=== PATIENT | male | born 1945 | race Caucasian/White ===

== ENCOUNTER 2016-09-06 17:26 | Emergency (ER) | payer MEDICARE ==
[~2016-09-06 17:26] MED LIST: ALDACTONE 25MG25 MG PO; AMARYL 2MG TABLE2 MG PO; ASPIRIN CHEWABL81 MG PO; CARDIZEM30 MG PO; CHLORTHALIDONE25 MG PO; CLINDAMYCIN HC300 MG PO; COUMADIN3 MG PO; COZAAR100 MG PO; LIPITOR TAB 2020 MG PO; LOPRESSOR100 MG PO; MULTIVITAMINS1 EAC1 PO; NORVASC 5 MG TAB5 MG PO; ZOCOR 10 MG TAB10 MG PO
[2016-09-06 20:43] LABS: HEMOGLOBIN 12.6 gm/dl (14.0-17.5); RED BLOOD COUNT 4.02 M/UL (4.20-5.50); WHITE BLOOD COUNT 13.7 K/UL (4.5-11.0)
== END 2016-09-06 23:40 | disposition home or self-care (01) ==
LOC: ER1 17:26
PROVIDERS: Emergency Medicine
DX: R31.0 Gross hematuria (principal); I12.9 Hypertensive chronic kidney disease with stage 1 through stage 4 chronic kidney disease, or unspecified chronic kidney disease; E11.22 Type 2 diabetes mellitus with diabetic chronic kidney disease; N18.9 Chronic kidney disease, unspecified; N28.1 Cyst of kidney, acquired; D72.829 Elevated white blood cell count, unspecified; D64.9 Anemia, unspecified; I48.91 Unspecified atrial fibrillation; T45.515A Adverse effect of anticoagulants, initial encounter
CPT/HCPCS: 36415; 80053; 81001; 85025; 85610; 87086; 99284

== ENCOUNTER → 2016-09-29 | Outpatient (CLI) | payer MEDICARE | LOC: CT 13:09 | DX: R31.0 Gross hematuria (principal); N28.1 Cyst of kidney, acquired ==

== ENCOUNTER 2020-05-06 03:14 | Inpatient (IN) | payer MEDICARE ==
[~2020-05-06] VITALS: Ht 172.7 cm; Wt 95.4 kg
[~2020-05-06 03:14] MED LIST changes: +ASPIRIN81 MG PO; +ATORVASTATIN CA80 MG PO; +BUMETANIDE2 MG PO; +CATAPRES0.2 MG PO; +CLONIDINE1 EACH TOP; +CORDARONE 200M200 MG PO; +COREG 25MG TAB25 MG PO; +COZAAR50 MG PO; +DIABETA 2.5 MG2.5 MG PO; +DIURIL PO; +DOCUSATE SODIU1 EACH PO; +ELIQUIS2.5 MG PO; +FERROUS SULFAT325 MG PO; +IPRAT-ALBUT 0.5-3 ML NEB; +KEFLEX CAP 500500 MG PO; +MELATONIN3 MG PO; +MIRALAX17 GM PO; +MULTI-VITAMIN1 EACH PO; +MYCOSTATIN POWD15 GM TOP; +NEPRO CARB ST1000 ML PO; +NORVASC10 MG PO; +NOVOLOG100 UNIT/1 SQ; +PANTOPRAZOLE SO40 MG PO; +PLAVIX 75 MG TA75 MG PO; +POTASSIUM CHLO20 ME2 PO; +PROTONIX40 MG PO; +SODIUM BICARBO650 MG GT; +STROVITE FORTE1 EACH PO; +SYNTHROID25 MCG PO; +TYLENOL 325MG325 MG PO; +VENTOLIN HFA 66.7 GM INH; +ZINC OXIDE OINT30 GM TP; +[UNRECOGNIZED DRUG - OTHER] TP
[2020-05-06 04:40] LABS: HEMOGLOBIN 9.6 gm/dl (14.0-17.5); RED BLOOD COUNT 3.07 M/UL (4.20-5.50); WHITE BLOOD COUNT 15.3 K/UL (4.5-11.0)
[2020-05-06] MEDS ORDERED: FLOMAX 0.4 MG0.4 MG PO (16:05)
[2020-05-06] MEDS ORDERED: COREG3.125 MG PO (16:05)
[2020-05-06] MEDS ORDERED: AMARYL1 MG PO (16:05)
[2020-05-06] MEDS ORDERED: ALDACTONE25 MG PO (16:06)
[2020-05-06] MEDS ORDERED: FINASTERIDE5 MG PO (16:25)
[2020-05-06] MEDS ORDERED: CALCIUM 600 +1 EA10 PO (16:27)
[2020-05-06] MEDS ORDERED: BUMETANIDE2 MG PO (16:28)
[2020-05-06] MEDS ORDERED: UNICOMPLEX-M1 EACH PO (16:28)
[2020-05-06] MEDS ORDERED: CATAPRES 0.1MG0.1 MG PO (16:32)
[2020-05-07 02:31] LABS: HEMOGLOBIN 9.9 gm/dl (14.0-17.5); RED BLOOD COUNT 3.12 M/UL (4.20-5.50); WHITE BLOOD COUNT 15.9 K/UL (4.5-11.0)
[2020-05-08 02:58] LABS: HEMOGLOBIN 9.9 gm/dl (14.0-17.5); RED BLOOD COUNT 3.18 M/UL (4.20-5.50); WHITE BLOOD COUNT 15.3 K/UL (4.5-11.0)
[2020-05-10 02:58] LABS: RED BLOOD COUNT 2.96 M/UL (4.20-5.50); WHITE BLOOD COUNT 11.5 K/UL (4.5-11.0)
[2020-05-11 03:04] LABS: HEMOGLOBIN 8.9 gm/dl (14.0-17.5); RED BLOOD COUNT 2.92 M/UL (4.20-5.50); WHITE BLOOD COUNT 9.9 K/UL (4.5-11.0)
[2020-05-12 10:58] LABS: URINE CREATININE 67.1 mg/dL
[2020-05-13 04:07] LABS: RED BLOOD COUNT 2.89 M/UL (4.20-5.50); WHITE BLOOD COUNT 8.3 K/UL (4.5-11.0)
--- NOTE | 2020-05-14 03:02 | NUR ---
PATIENT CONFUSED STATES HE NEEDS TO GO TO THE STORE. HAD REMOVED AIRVO AND WAS 75% ON AIRVO. REPLACED AND CAME UP TO 92%
--- NOTE | 2020-05-14 03:14 | NUR ---
VISITS ON THE FLOOR, MADE AWARE OF PATIENTS CONFUSION AND REMOVING AIRVO, EXAMS PATIENT AND ORDERS ABG TO LET HIM KNOW RESULTS.
[2020-05-14 07:12] LABS: COMPLEMENT C3, SERUM 121 mg/dL (82-167); COMPLEMENT C4, SERUM 38 mg/dL (12-38); HBSAG SCREEN Negative (Negative); HEP B CORE AB, TOT Negative (Negative); HEP C VIRUS AB <0.1 (0.0-0.9)
[2020-05-14 10:29] LABS: HEMOGLOBIN 8.9 gm/dl (14.0-17.5); RED BLOOD COUNT 2.9 M/UL (4.20-5.50)
[2020-05-14 13:14] LABS: ANTI-DSDNA ANTIBODIES <1 IU/mL (0-9)
[2020-05-14 16:14] LABS: A/G RATIO 0.7 (0.7-1.7); ALPHA-1-GLOBULIN 0.3 g/dL (0.0-0.4); ALPHA-2-GLOBULIN 1.1 g/dL (0.4-1.0); ATYPICAL PANCA <1:20 titer (Neg:<1:20); BETA GLOBULIN 0.9 g/dL (0.7-1.3); CYTOPLASMIC (C-ANCA) <1:20 titer (Neg:<1:20); GAMMA GLOBULIN 0.7 g/dL (0.4-1.8); IMMUNOGLOBULIN A, QN, SERUM 400 mg/dL (61-437); IMMUNOGLOBULIN G, QN, SERUM 839 mg/dL (603-1613); IMMUNOGLOBULIN M, QN, SERUM 57 mg/dL (15-143); M-SPIKE Not Observed g/dL (Not Observed); PERINUCLEAR (P-ANCA) <1:20 titer (Neg:<1:20)
[2020-05-16 03:13] LABS: HEMOGLOBIN 9.8 gm/dl (14.0-17.5); RED BLOOD COUNT 3.17 M/UL (4.20-5.50); WHITE BLOOD COUNT 10.4 K/UL (4.5-11.0)
[2020-05-17 02:58] LABS: HEMOGLOBIN 8.9 gm/dl (14.0-17.5); RED BLOOD COUNT 2.88 M/UL (4.20-5.50); WHITE BLOOD COUNT 8.6 K/UL (4.5-11.0)
[2020-05-18 02:18] LABS: HEMOGLOBIN 8.7 gm/dl (14.0-17.5); RED BLOOD COUNT 2.87 M/UL (4.20-5.50); WHITE BLOOD COUNT 9.9 K/UL (4.5-11.0)
[2020-05-20 02:26] LABS: HEMOGLOBIN 8.6 gm/dl (14.0-17.5); RED BLOOD COUNT 2.82 M/UL (4.20-5.50)
[2020-05-20 02:27] LABS: WHITE BLOOD COUNT 12.9 K/UL (4.5-11.0)
[2020-05-21 03:48] LABS: HEMOGLOBIN 8.2 gm/dl (14.0-17.5); RED BLOOD COUNT 2.64 M/UL (4.20-5.50); WHITE BLOOD COUNT 14.3 K/UL (4.5-11.0)
--- NOTE | 2020-05-21 13:59 | NUR ---
NO CHANGE FROM PREVIOUS ASSESSMENT, PT RESTING IN BED WITH EYES CLOSED.
--- NOTE | 2020-05-21 17:45 | NUR ---
15:40 PT TAKEN TO DIALYSIS ON 2ND FLOOR, VSS AT THIS TIME
--- NOTE | 2020-05-22 14:33 | NUR ---
14:00 NO CHANGES FROM PREVIOUS ASSESSMENT, PT RESTING IN BED, VSS AT THIS TIME
[2020-05-23 03:55] LABS: RED BLOOD COUNT 2.6 M/UL (4.20-5.50)
[2020-05-24 02:44] LABS: HEMOGLOBIN 7.5 gm/dl (14.0-17.5); RED BLOOD COUNT 2.41 M/UL (4.20-5.50); WHITE BLOOD COUNT 19.6 K/UL (4.5-11.0)
[2020-05-24 14:14] LABS: ANTI-DSDNA ANTIBODIES <1 IU/mL (0-9)
--- NOTE | 2020-05-25 00:35 | NUR ---
0035- AT THIS TIME IT WAS SEEN ON THE MONITOR THAT PATIENT'S HEART RATE WAS IN THE 30'S AND O2 SATURATION WAS 66%. NURSES, TESS AND SHANT, WENT INTO ROOM QUICKLY TO ASSESS PATIENT. PATIENT WAS FOUND TO BE SLUMPED OVER THE SIDE OF BED AND HAD TAKEN HIS OXYGEN OUT OF HIS NOSE. PATIENT WAS ALSO UNRESPONSIVE AT THIS TIME. CRASH CART WAS IMMENDIATELY BROUGHT INTO ROOM AND I HIS PRIMARY NURSE WAS NOTIFIED AT THIS TIME. PATIENT HAD LEGS OVER SIDE OF RAIL IN WHAT LOOKED LIKE AN ATTEMPT TO GET OUT OF BED. LEGS WAS PUT BACK IN BED AND PATIENT WAS RESITUATED. NASAL CANNULA WAS PUT BACK IN HIS NOSE. OXYGEN NOT IMPROVING WELL SO AIRVO TURNED ON AND PLACED IN HIS NOSE. PATIENT WAS DISPLAYING AGONAL BREATHING WITH A RESP. RATE IN LOW TEENS. PATIENT WAS ALSO NOT RESPONSIVE TO STERNAL RUB. 0038- ATTEMPT TO NOTIFY MD. NO ANSWER. 0040- 2ND ATTEMPT TO NOTIFY MD. MD WAS TOLD ABOUT PATIENT STATUS AND THAT HE IS CURRENTLY ON AIRVO AND VERY SLOWLY IMPROVING IN O2 SAT. MD INFORMED THAT PATIENT IS SHOWING AGONAL BREATHING AND AND NOT RESPONSIVE TO STIMULI. (GARRICK) ORDER TO PUT PATIENT ON BIPAP FOR NOW AND HE WILL BE ON HIS WAY. RT NOTIFIED. 0044- MD ARRIVAL TO FLOOR. MD ASSESSED PATIENT. AT THIS TIME. 02 AT 95-97% ON AIRVO. PATIENT STILL UNRESPONSIVE AND AGONAL BREATHING. MD ORDER ALSO RECIEVED FOR CXR, ABG NOW, ENSURE THAT PULM IS ON PATIENT'S CASE AND TO MOVE PATIENT TO ICU. HOUSE WAS NOTIFIED FOR THE NEED FOR AN ICU BED PER MD. 0055- REPORT CALLED TO YOLIS STRONG IN ICU. 0100- PATIENT TRASFERRED TO ICU BY ELLY SAMPSON AND YOLIS BRAN AFTER CXR WAS DONE IN PATIENT ROOM. MD NOTIFIED. ATTEMPTED TO NOTIFY FAMILY OF TRANSFER BUT BUSY TONE RECIEVED WHEN CALLED. 0108- MD ORDER FOR CT OF HEAD WITHOUT CONTRAST RECIEVED. ORDER ENTERED.
[2020-05-25 04:34] LABS: RED BLOOD COUNT 2.06 M/UL (4.20-5.50); WHITE BLOOD COUNT 25.7 K/UL (4.5-11.0)
[2020-05-25 04:35] LABS: HEMOGLOBIN 6.4 gm/dl (14.0-17.5)
[2020-05-25 18:09] LABS: ANTIMYELOPEROXIDASE (MPO) ABS <9.0 U/mL (0.0-9.0); ANTIPROTEINASE 3 (PR-3) ABS <3.5 U/mL (0.0-3.5); ATYPICAL PANCA <1:20 titer (Neg:<1:20); CYTOPLASMIC (C-ANCA) <1:20 titer (Neg:<1:20); PERINUCLEAR (P-ANCA) <1:20 titer (Neg:<1:20)
[2020-05-26 06:36] LABS: HEMOGLOBIN 7.3 gm/dl (14.0-17.5); RED BLOOD COUNT 2.38 M/UL (4.20-5.50); WHITE BLOOD COUNT 22.9 K/UL (4.5-11.0)
--- NOTE | 2020-05-26 14:08 | NUR ---
05/26/20 1345 ATTEMPT WAS MADE TO CONTACT FAMILY ABOUT PT CONDITON AND CODE STATUS. UNABLE TO REACH ANY FAMILY AT THIS TIME. THE ELECTRIC WAS STILL OUT AT THE SONS HOME YESTERDAY. HE HAD CALLED FROM ANOTHER PERSONS PHONE YESTERDAY. MADE AWARE. WANTED ME TO DISCUSS CODE STATUS WITH THE PT AND PT WAS VERY LETHARGIC AND UNABLE TO GIVE A RESPONSE.
[2020-05-26 21:35] LABS: WHITE BLOOD COUNT 22.6 K/UL (4.5-11.0)
[2020-05-26 21:36] LABS: HEMOGLOBIN 8.9 gm/dl (14.0-17.5); RED BLOOD COUNT 2.94 M/UL (4.20-5.50)
[2020-05-27 05:38] LABS: HEMOGLOBIN 7.9 gm/dl (14.0-17.5); WHITE BLOOD COUNT 21.3 K/UL (4.5-11.0)
[2020-05-27 05:40] LABS: RED BLOOD COUNT 2.62 M/UL (4.20-5.50)
[2020-05-27 16:11] LABS: ORGANISM ID Not indicated. (.); SPECIMEN SOURCE Urine (.); STREPTOCOCCUS PNEUMONIAE AG Negative (Negative)
[2020-05-27 16:33] LABS: RED BLOOD COUNT 2.94 M/UL (4.20-5.50); WHITE BLOOD COUNT 14.3 K/UL (4.5-11.0)
[2020-05-28 05:36] LABS: HEMOGLOBIN 7.5 gm/dl (14.0-17.5)
[2020-05-28 05:45] LABS: RED BLOOD COUNT 2.44 M/UL (4.20-5.50)
[2020-05-29 05:36] LABS: HEMOGLOBIN 9.3 gm/dl (14.0-17.5); RED BLOOD COUNT 3.1 M/UL (4.20-5.50); WHITE BLOOD COUNT 17.4 K/UL (4.5-11.0)
[2020-05-30 03:19] LABS: HEMOGLOBIN 9.7 gm/dl (14.0-17.5); RED BLOOD COUNT 3.22 M/UL (4.20-5.50)
[2020-05-30 03:20] LABS: WHITE BLOOD COUNT 22.3 K/UL (4.5-11.0)
[2020-05-31 05:40] LABS: RED BLOOD COUNT 2.96 M/UL (4.20-5.50); WHITE BLOOD COUNT 21.6 K/UL (4.5-11.0)
[2020-06-01 04:32] LABS: HEMOGLOBIN 8.2 gm/dl (14.0-17.5); RED BLOOD COUNT 2.71 M/UL (4.20-5.50); WHITE BLOOD COUNT 23.7 K/UL (4.5-11.0)
--- NOTE | 2020-06-01 13:57 | NUR ---
1000: DR BARFIELD NOTIFIED PT HR 140-150'S, RR 40-50'S, O2 SAT 89% ON BIPAP, AMS, PT JUST BEGAN DIALYSIS. NOTIFY PULMONOLOGY. 1003: DR ARORA NOTIFIED OF PT CONDITION, CAME TO BEDSIDE TO ASSESS PT. PT STARTED ON AMIODARONE DRIP PER PROTOCOL, TEAM READY TO INTUBATE PT, HOB LOWERED TO SUPINE POSITION, PT HR REGULATED TO 80'S, RR TO 20'S-30'S, O2 SAT 96%, MD HOLDING ON INTUBATION FOR NOW. FAMILY NOTIFIED.
[2020-06-01 15:25] LABS: HEMOGLOBIN 7.5 gm/dl (14.0-17.5); RED BLOOD COUNT 2.46 M/UL (4.20-5.50); WHITE BLOOD COUNT 23.4 K/UL (4.5-11.0)
[2020-06-01] MEDS ORDERED: LOPRESSOR 25 MG25 MG PO (18:09)
[2020-06-01 19:28] LABS: HEMOGLOBIN 9.7 gm/dl (14.0-17.5); RED BLOOD COUNT 3.23 M/UL (4.20-5.50); WHITE BLOOD COUNT 28.3 K/UL (4.5-11.0)
== END 2020-06-01 22:41 | disposition short-term general hospital (02) | DRG 673 ==
LOC: ER1 03:14 → CCU 05:46 → CDU 05:46 → PROG CARE 05:46 → 2 EAST 05-14 13:26 → PROG CARE 05-14 13:26 → 2 EAST 05-14 13:26 → CCU 05-25 01:23 → 2 EAST 05-25 02:00 → CCU 05-25 04:00
PROVIDERS: Family Medicine; Hospitalist; Internal Medicine; Internal Medicine Cardiovascular Disease; Internal Medicine Gastroenterology; Internal Medicine Infectious Disease; Internal Medicine Nephrology; Internal Medicine Pulmonary Disease; ADMIT Internal Medicine
PROC: B24BZZZ Ultrasonography of Heart with Aorta (ICD-10-PCS; 2020-05-06)
PROC: 5A0935A Assistance with Respiratory Ventilation, Less than 24 Consecutive Hours, High Flow/Velocity Cannula (ICD-10-PCS; 2020-05-06)
PROC: 0JH63XZ Insertion of Tunneled Vascular Access Device into Chest Subcutaneous Tissue and Fascia, Percutaneous Approach (ICD-10-PCS; 2020-05-14)
PROC: 05HM33Z Insertion of Infusion Device into Right Internal Jugular Vein, Percutaneous Approach (ICD-10-PCS; 2020-05-14)
PROC: B543ZZA Ultrasonography of Right Jugular Veins, Guidance (ICD-10-PCS; 2020-05-14)
PROC: 8E0ZXY6 Isolation (ICD-10-PCS; principal; 2020-05-23)
PROC: XW033E5 Introduction of Remdesivir Anti-infective into Peripheral Vein, Percutaneous Approach, New Technology Group 5 (ICD-10-PCS; 2020-05-23)
PROC: 30233N1 Transfusion of Nonautologous Red Blood Cells into Peripheral Vein, Percutaneous Approach (ICD-10-PCS; 2020-05-25)
PROC: 5A1945Z Respiratory Ventilation, 24-96 Consecutive Hours (ICD-10-PCS; 2020-05-26)
PROC: 0BH17EZ Insertion of Endotracheal Airway into Trachea, Via Natural or Artificial Opening (ICD-10-PCS; 2020-05-26)
PROC: 0W3P8ZZ Control Bleeding in Gastrointestinal Tract, Via Natural or Artificial Opening Endoscopic (ICD-10-PCS; 2020-05-26)
PROC: 30233N1 Transfusion of Nonautologous Red Blood Cells into Peripheral Vein, Percutaneous Approach (ICD-10-PCS; 2020-05-26)
PROC: 30233N1 Transfusion of Nonautologous Red Blood Cells into Peripheral Vein, Percutaneous Approach (ICD-10-PCS; 2020-05-27)
PROC: 0DJ08ZZ Inspection of Upper Intestinal Tract, Via Natural or Artificial Opening Endoscopic (ICD-10-PCS; 2020-05-28)
PROC: 0DH68UZ Insertion of Feeding Device into Stomach, Via Natural or Artificial Opening Endoscopic (ICD-10-PCS; 2020-05-28)
PROC: 3E0G76Z Introduction of Nutritional Substance into Upper GI, Via Natural or Artificial Opening (ICD-10-PCS; 2020-05-28)
PROC: 30233N1 Transfusion of Nonautologous Red Blood Cells into Peripheral Vein, Percutaneous Approach (ICD-10-PCS; 2020-05-28)
DX: N17.0 Acute kidney failure with tubular necrosis (principal); U07.1 COVID-19; J12.82 Pneumonia due to coronavirus disease 2019; I50.23 Acute on chronic systolic (congestive) heart failure; G93.41 Metabolic encephalopathy; J80 Acute respiratory distress syndrome; A41.89 Other specified sepsis; R65.21 Severe sepsis with septic shock; K25.4 Chronic or unspecified gastric ulcer with hemorrhage; K26.4 Chronic or unspecified duodenal ulcer with hemorrhage; K22.11 Ulcer of esophagus with bleeding; E43 Unspecified severe protein-calorie malnutrition; I13.0 Hypertensive heart and chronic kidney disease with heart failure and stage 1 through stage 4 chronic kidney disease, or unspecified chronic kidney disease; D62 Acute posthemorrhagic anemia; I48.20 Chronic atrial fibrillation, unspecified; B15.9 Hepatitis A without hepatic coma; N18.6 End stage renal disease; R53.81 Other malaise; E11.22 Type 2 diabetes mellitus with diabetic chronic kidney disease; T38.0X5A Adverse effect of glucocorticoids and synthetic analogues, initial encounter; E11.65 Type 2 diabetes mellitus with hyperglycemia; I25.5 Ischemic cardiomyopathy; E66.01 Morbid (severe) obesity due to excess calories; D72.829 Elevated white blood cell count, unspecified; I25.10 Atherosclerotic heart disease of native coronary artery without angina pectoris; J44.9 Chronic obstructive pulmonary disease, unspecified; E03.9 Hypothyroidism, unspecified; Z90.49 Acquired absence of other specified parts of digestive tract; Z99.2 Dependence on renal dialysis; Z68.35 Body mass index [BMI] 35.0-35.9, adult; Z87.891 Personal history of nicotine dependence; Z95.5 Presence of coronary angioplasty implant and graft; Z79.02 Long term (current) use of antithrombotics/antiplatelets; Z79.890 Hormone replacement therapy; Z79.899 Other long term (current) drug therapy; N40.0 Benign prostatic hyperplasia without lower urinary tract symptoms; R19.7 Diarrhea, unspecified
CPT/HCPCS: ECHO; 31500; 36415; 36430; 36600; 71045; 71250; 74018; 77001; 80048; 80053; 80069; 81001; 82270; 82550; 82553; 82570; 82575; 82728; 82784; 82803; 82962; 83520; 83540; 83550; 83605; 83615; 83735; 83880; 83883; 84100; 84155; 84156; 84165; 84300; 84484; 85007; 85014; 85018; 85025; 85027; 85610; 85730; 86021; 86038; 86140; 86160; 86162; 86225; 86256; 86334; 86704; 86706; 86708; 86803; 86850; 86900; 86901; 86920; 87040; 87070; 87086; 87205; 87278; 87340; 87449; 87899; 90935; 90937; 93005; 93306; 93970; 94002; 94003; 94640; 94660; 94664; 94760; 96365; 96366; 96367; 96372; 97110; 97110-GP-CQ; 97162; 97164; 97166; 97168; 97530; 97530-GP-CQ; 97535; 99285; A6212; C1750; C1752; C1769; C9113; J0171; J1100; J1160; J1205; J1250; J1335; J1642; J1644; J1940; J2001; J2020; J2185; J2250; J2370; J2405; J2704; J2997; J3010; J3370; J7030; J7040; J7050; J7070; J7120; P9016; P9047; Q4081; Q5105; Q9967; U0002